=== PATIENT | male | born 1985 | race Two or more races ===

== ENCOUNTER 2017-08-31 01:48 | Emergency (ER) | payer OTHER ==
[~2017-08-31] VITALS: Ht 195.6 cm; Wt 77.1 kg
[~2017-08-31 01:48] MED LIST: CEPHALEXIN500 MG ORAL; IBUPROFEN600 MG ORAL
[2017-08-31 02:00] VITALS: BP 120/73
[2017-08-31] MEDS ORDERED: Lidocaine 1% 10mg/ml/Epi 0.005mg/ml 30ml vial INJ ONE (02:30)
[2017-08-31 02:37] LABS: BASOPHILS % (AUTO) 1.4 % (0.0-2.0); EOSINOPHILS % (AUTO) 2.1 % (0.0-3.0); HEMATOCRIT 42.2 % (42.0-52.0); HEMOGLOBIN 14.2 G/DL (14.2-18.0); LYMPHOCYTES % (AUTO) 49.5 % (20.0-45.0); MEAN CORPUSCULAR VOLUME 95 FL (80-99); MONOCYTES % (AUTO) 12.8 % (1.0-10.0); NEUTROPHILS % (AUTO) 34.3 % (45.0-75.0); PLATELET COUNT 165 K/UL (150-450); RED BLOOD COUNT 4.46 M/UL (4.70-6.10); RED CELL DISTRIBUTION WIDTH 12.2 % (11.6-14.8); WHITE BLOOD COUNT 3.7 K/UL (4.8-10.8)
[2017-08-31] MEDS ORDERED: Hydrogen Peroxide 473ml Bottle TOPIC ONE (03:04)
--- NOTE | 2017-08-31 03:51 | Emergency Room Report ---
History of Present Illness General Chief Complaint: Gastrointestinal Bleed Source: Patient Present Illness HPI Is a 32-year-old male who had a perirectal abscess in the by surgeon 2 weeks ago. His been doing fine with dressing changes. Tonight he was is bleeding profusely from the wound. No trauma. No pain. He came in by EMS because of the bleeding. Allergies: Coded Allergies: No Known Allergies (Unverified , 10/27/15) Patient History Past Medical History: see triage record, old chart reviewed Past Surgical History: other Pertinent Family History: none Social History: Denies: smoking Immunizations: other Reviewed Nursing Documentation: PMH: Agreed, PSxH: Agreed Nursing Documentation-PMH Past Medical History: No History, Except For Hx Gastrointestinal Problems: Yes - Perirectal abscess Review of Systems Eye: Denies: eye pain, blurred vision ENT: Denies: ear pain, nose congestion, throat swelling Respiratory: Denies: cough, shortness of breath Cardiovascular: Denies: chest pain, palpitations Gastrointestinal: Denies: abdominal pain, diarrhea, nausea, vomiting Musculoskeletal: Denies: back pain, joint pain Skin: Denies: rash Neurological: Denies: headache, numbness Endocrine: Denies: increased thirst, increased urine Hematologic/Lymphatic: Denies: easy bruising All Other Systems: negative except mentioned in HPI Physical Exam Vital Signs Date Time Temp Pulse Resp B/P (MAP) Pulse Ox O2 Delivery O2 Flow Rate FiO2 08/31/17 01:47 98.1 75 16 120/73 99 Room Air vitals normal Sp02 EP Interpretation: reviewed, normal General Appearance: well appearing, no apparent distress, alert Head: normocephalic, atraumatic Eyes: bilateral eye PERRL, bilateral eye EOMI ENT: hearing grossly normal, normal pharynx Neck: full range of motion, supple, no meningismus Respiratory: chest non-tender, lungs clear, normal breath sounds Cardiovascular #1: regular rate, rhythm, no murmur Gastrointestinal: normal bowel sounds, non tender, no mass, no organomegaly, no bruit, non-distended Rectal: other - His wound on the left buttock looks clean. There is an arterial bleeding inside of it. It would not stop bleeding with pressure. Musculoskeletal: back normal, gait/station normal, normal range of motion Psychiatric: mood/affect normal Skin: warm/dry Medical Decision Making Diagnostic Impression: Primary Impression: Post-op bleeding ER Course Patient presents with delayed postoperative bleeding. The surgeon was able to stop the bleeding and close the wound. Patient will followup as an outpatient. Last Vital Signs Date Time Temp Pulse Resp B/P (MAP) Pulse Ox O2 Delivery O2 Flow Rate FiO2 08/31/17 01:47 98.1 75 16 120/73 99 Room Air Status: improved Disposition: HOME, SELF-CARE Condition: Stable Referrals: NOT CHOSEN IPA/MD,REFERRING (PCP) Additional Instructions: Followup with your surgeon on Saturday. Return for any bleeding. SANTOSH MELTON M.D. Aug 31, 2017 03:51
[2017-08-31 03:55] VITALS: BP_SYST 124; BP_SYST 126; BP_DIAS 75; BP_DIAS 77
--- NOTE | 2017-08-31 04:00 | Consultation ---
History of Present Illness General Date patient seen: Aug 31, 2017 Chief Complaint: Gastrointestinal Bleed Reason for Consultation: wound bleeding Present Illness HPI 32 year old male well known to me. Initially seen in my office for evaluation of perianal/perirectal abscess which had been ongoing for 3-4 weeks without resolution. Had been on oral Abx for over 20+ days without resolution. Abscess noted and required I&D which was performed on 08/21/2017 in my office. Patient had been packing and dressings wound until seen in office 08/28/2017 for follow up. At that time wound clean and healing with good granulation tissue. No longer required packing. small open area which was healing well but majority of abscess cavity had closed and healing. Patient was well since until late evening on 08/30/2017 when he noted bright red blood from wound site. Bleeding constant since onset. Patient paged my emergency number and discussed findings over the phone. Recommended that he go to ED right away. Initial evaluation by Dr. Rodolfo Elizalde noted pulsatile hemorrhage from wound bed but given small size wound orifice difficult to identify exact location and obtain hemostasis. I was called and came to evaluate and assist if possible. When seen at bedside in ED patient noted to have dry blood on bilateral lower extremities and around buttock. Temporary hemostasis obtained by my astute colleague Dr. Elizalde with surgicel and gauze sutured around wound. Packing removed and pulsatile bleeding noted filling wound cavity. 1% lidocaine with epi infiltrated into surrounding tissues and with help of staff, suction, and manipulation a small dermal/subdermal arterial bleeder was identified. hemostat placed on artery. wound irrigated and no other area of bleeding noted. heat cautery used and hemostasis obtained. wound cleaned and manipulated with good hemostasis noted. Anoscope inserted and rectal vault evaluated. no identifiable fistula or other abnormality noted. After through cleaning of wound decision was made to close wound given that it is near two weeks since abscess had resolved. abscess cavity has been evacuated, packed, and healing with good granulation tissue. Discussed possible risks, benefits, and alternatives to closing wound with patient. He expressed understanding and consented to closure. Two interrupted 3-0 nylon sutures used to reapproximate wound edges. wound cleaned. dressings applied. patient informed of signs or symptoms or repeat hemorrhage or infection. He will keep aware and return immediately if concerns. He will follow up with me this coming Saturday in my office as well. Allergies: Coded Allergies: No Known Allergies (Unverified , 10/27/15) Medication History Scheduled Cephalexin* (Keflex*), 500 MG ORAL EVERY 12 HOURS Ibuprofen* (Motrin*), 600 MG ORAL FOUR TIMES A DAY Patient History History Provided By: Patient Healthcare decision maker Resuscitation status Advanced Directive on File Past Medical/Surgical History Past Medical/Surgical History: (1) Bleeding from wound Review of Systems Constitutional: Denies: no symptoms, see HPI, chills, sweats, fever, malaise, weakness, other Eye: Denies: no symptoms, see HPI, eye pain, blurred vision, tearing, double vision, nose pain, nose congestion, acuity changes, discharge, other ENT: Denies: no symptoms, see HPI, ear pain, ear discharge, nose pain, nose congestion, throat pain, throat swelling, mouth pain, hearing loss, nasal discharge, other Respiratory: Denies: no symptoms, see HPI, cough, orthopnea, shortness of breath, stridor, wheezing, SALAZAR, sputum, other Cardiovascular: Denies: no symptoms, see HPI, chest pain, edema, palpitations, syncope, PND, other Gastrointestinal: Denies: no symptoms, see HPI, abdominal pain, constipation, diarrhea, nausea, vomiting, melena, hematemesis, other Genitourinary: Denies: no symptoms, see HPI, discharge, dysuria, frequency, hematuria, pain, retention, incontinence, urgency, vag bleed/dc, other Musculoskeletal: Denies: no symptoms, see HPI, back pain, gout, joint pain, joint swelling, muscle pain, muscle stiffness, other Skin: Denies: no symptoms, see HPI, rash, change in color, change in hair/nails , dryness, lesions, other Psychiatric: Denies: no symptoms, see HPI, prior hx, anxiety, depressed feelings, emotional problems, SI, HI, hallucinations, other Neurological: Denies: no symptoms, see HPI, headache, numbness, paresthesia, seizure, tingling, tremors, focal weakness, syncope, dizziness, other Endocrine: Denies: no symptoms, see HPI, excessive sweating, flushing, intolerance to temperature, increased thirst, increased urine, unexplained weight loss, other Hematologic/Lymphatic: Denies: no symptoms, see HPI, anemia, blood clots, easy bleeding, easy bruising, swollen glands, diathesis, other All Other Systems: negative except mentioned in HPI Physical Exam General Appearance: no apparent distress, alert Lines, tubes and drains: peripheral HEENT: normocephalic, atraumatic, mucous membranes moist, PERRL Neck: normal inspection Respiratory/Chest: lungs clear, normal breath sounds, no respiratory distress, no accessory muscle use Cardiovascular/Chest: normal peripheral pulses, normal rate, regular rhythm Abdomen: normal bowel sounds, non tender, soft, no organomegaly, no mass Genitourinary/Rectal: other - refer to HPI Extremities: normal inspection Skin Exam: normal pigmentation, warm/dry Neurologic: alert, oriented x 3, responsive Last 24 Hour Vital Signs Date Time Temp Pulse Resp B/P (MAP) Pulse Ox O2 Delivery O2 Flow Rate FiO2 08/31/17 01:47 98.1 75 16 120/73 99 Room Air Laboratory Tests Test 08/31/17 02:25 White Blood Count 3.7 K/UL (4.8-10.8) L Red Blood Count 4.46 M/UL (4.70-6.10) L Hemoglobin 14.2 G/DL (14.2-18.0) Hematocrit 42.2 % (42.0-52.0) Mean Corpuscular Volume 95 FL (80-99) Mean Corpuscular Hemoglobin 31.9 PG (27.0-31.0) H Mean Corpuscular Hemoglobin Concent 33.7 G/DL (32.0-36.0) Red Cell Distribution Width 12.2 % (11.6-14.8) Platelet Count 165 K/UL (150-450) Mean Platelet Volume 6.1 FL (6.5-10.1) L Neutrophils (%) (Auto) 34.3 % (45.0-75.0) L Lymphocytes (%) (Auto) 49.5 % (20.0-45.0) H Monocytes (%) (Auto) 12.8 % (1.0-10.0) H Eosinophils (%) (Auto) 2.1 % (0.0-3.0) Basophils (%) (Auto) 1.4 % (0.0-2.0) Prothrombin Time 10.4 SEC (9.30-11.50) Prothromb Time International Ratio 1.0 (0.9-1.1) Activated Partial Thromboplast Time 29 SEC (23-33) Height (Feet): 6 Height (Inches): 5.00 Weight (Pounds): 170 Assessment/Plan Problem List: (1) Bleeding from wound Assessment & Plan: Hemostasis obtained in ED. wound care performed. -d/c home -ibuprofen for pain -keep wound site clean (shower prn and after BM's, dressings prn) -return if bleeding or signs of infection -follow up with me this Saturday in the office. Thank you for allowing me to participate in Barrettnaresh Michel's care. ICD Codes: T14.8XXA - Other injury of unspecified body region, initial encounter SNOMED: [id number] Status: stable Mick Childress Aug 31, 2017 04:00
== END 2017-08-31 03:50 | disposition home or self-care (01) ==
LOC: EDBD 01:48 → EMR 02:15
DX: K91.841 Postprocedural hemorrhage of a digestive system organ or structure following other procedure (principal)
CPT/HCPCS: 36415; 85025; 85610; 85730; 99284